=== PATIENT | female | born 1960 | race Caucasian/White ===

== ENCOUNTER 2022-08-18 14:48 | Inpatient (IN) | payer OTHER ==
[2022-08-18 15:24] LABS: Absolute Lymphocytes (CBC) 0.8 K/uL (0.7-4.9); Hematocrit 38.6 % (36.0-45.0); Lymphocytes % 14.1 % (15.3-44.8); MCV 97.9 fL (80-100); MPV 9.6 fL (7.6-11.3); RBC Red Blood Cell Count 3.95 M/uL (3.86-4.86)
[2022-08-18 15:54] LABS: Albumin 3.7 g/dL (3.4-5.0); Bilirubin Direct 0.2 mg/dL (0-0.2); Bilirubin Indirect, Calculated 0.3 mg/dL (0.2-0.8); Bilirubin Total 0.5 mg/dL (0.2-1.0); Magnesium 2.1 mg/dL (1.6-2.4); Phosphorus 2.9 mg/dL (2.5-4.9); Potassium 4.7 mEq/L (3.5-5.1); Protein, Total 7.6 g/dL (6.4-8.2)
--- NOTE | 2022-08-18 16:13 | EDPHYS ---
Physician Documentation [facility] Name: Mark Lester Age: 62 yrs Sex: Female : 1960 Arrival Date: 08/18/2022 Time: 14:48 Bed 8 Private MD: ED Physician Eduar Shelton HPI: 08/18 15:06 This 62 yrs old Female presents to ER via EMS with complaints of hyperglycemia. ms3 15:06 62-year-old female with no past medical history presents via [facility] from the [address] for hyperglycemia. Patient states earlier today she was seen at [facility] emergency room in [place]. Patient states her blood glucose level was elevated at that time and she was given 2 L normal saline and insulin. Patient was then discharged with metformin. At the [facility] EMS was then called for concern for DKA.. Historical: - Allergies: 14:58 Iodine; ap3 - Home Meds: 14:58 None [Active]; ap3 - PMHx: 14:58 None; ap3 - Immunization history:: Adult Immunizations up to date. - Social history:: Smoking status: Patient denies any tobacco usage or history of. ROS: 15:06 Constitutional: Negative for fever, and chills. Neck: Negative for injury, pain, and ms3 swelling, Cardiovascular: Negative for chest pain, and palpitations. Respiratory: Negative for shortness of breath, cough, wheezing, and pleuritic chest pain, Abdomen/GI: Negative for abdominal pain, nausea, vomiting, diarrhea, and constipation, Back: Negative for injury and pain, MS/Extremity: Negative for injury and deformity, Skin: Negative for injury, rash, and discoloration. 15:06 Endocrine: Positive for polydipsia, polyuria. 15:06 All other systems are negative. Exam: 15:06 Constitutional: This is a well developed, well nourished patient who is awake, alert, ms3 and in no acute distress. Head/Face: Normocephalic, atraumatic. Neck: Trachea midline, no cervical lymphadenopathy. Supple, full range of motion without nuchal rigidity, or vertebral point tenderness. No Meningismus. Chest/axilla: Normal chest wall appearance and motion. Nontender with no deformity. Respiratory: Lungs have equal breath sounds bilaterally, clear to auscultation and percussion. No rales, rhonchi or wheezes noted. No increased work of breathing, no retractions or nasal flaring. Abdomen/GI: Soft, non-tender, with normal bowel sounds. No distension or tympany. No guarding or rebound. No evidence of tenderness throughout. Skin: Warm, dry with normal turgor. Normal color with no rashes, no lesions, and no evidence of cellulitis. MS/ Extremity: Pulses equal, no cyanosis. Neurovascular intact. Full, normal range of motion. 15:06 Cardiovascular: Rate: bradycardic, Rhythm: regular, Pulses: no pulse deficits are appreciated, Heart sounds: normal, normal S1and S2. 15:06 ECG was reviewed by the Attending Physician. Vital Signs: 14:53 BP 117 / 80; Pulse 61; Resp 18; Temp 98.8(O); Pulse Ox 100% ; ap3 15:44 BP 103 / 75; Pulse 57; Resp 18; Pulse Ox 100% on R/A; ld1 MDM: 14:53 Patient medically screened. bs3 15:08 ED course: Labs from [place] emergency department: CBC: White blood count 7.2, hemoglobin ms3 13.2, hematocrit 37.4, platelets 334. Urinalysis: Glucose 500, bilirubin negative, ketones greater than or equal to 160 mg/dL, blood negative, pH 5.5, protein negative, nitrite negative, leukocyte esterase negative. CMP performed at 1120 sodium 135, potassium 5.7, bicarb 13, chloride 94, glucose 639, calcium 10.3, BUN 25, creatinine 0.8, alk phos 81, ALT 26, AST 18, T. bili 0.9. CT head without contrast shows no acute intracranial abnormality, chest x-ray normal.. 16:18 Differential Diagnosis DKA vs Hyperglycemia vs CIERRA. Data reviewed: vital signs, nurses ms3 notes, diagnostic data from outside facility, CBC, white blood cell count, hemoglobin, hematocrit, platelets, electrolytes, sodium, potassium, chloride, serum bicarbonate, BUN, creatinine, serum glucose, hepatic panel, and as a result, I will discharge patient. Consideration of Admission/Observation Patient was admitted/placed on observation. Management of patient was discussed with the following: Hospitalist: Dr Alarcon. I considered the following discharge prescriptions or medication management in the emergency department Medications were administered in the Emergency Department. See MAR. Historians other than the Patient: EMS: [facility]. Counseling: I had a detailed discussion with the patient and/or guardian regarding: the historical points, exam findings, and any diagnostic results supporting the discharge/admit diagnosis, lab results, the need for further work-up and treatment in the hospital. Response to treatment: There is no appreciated change of the patient's symptoms at this time, and as a result, I will admit patient. 08/18 15:04 Order name: Acetone, Serum; Complete Time: 15:56 ms3 08/18 15:04 Order name: Basic Metabolic Panel; Complete Time: 16:04 ms3 08/18 15:04 Order name: CBC with Diff; Complete Time: 15:44 ms3 08/18 15:04 Order name: Hepatic Function; Complete Time: 16:04 ms3 08/18 15:04 Order name: Lipase; Complete Time: 16:04 ms3 08/18 15:04 Order name: Magnesium; Complete Time: 16:04 ms3 08/18 15:04 Order name: Phosphorus; Complete Time: 16:04 ms3 08/18 15:05 Order name: Glucose, Ancillary Testing; Complete Time: 15:44 EDMS 08/18 17:08 Order name: Glucose, Ancillary Testing; Complete Time: 17:13 EDMS 08/18 18:37 Order name: Glucose, Ancillary Testing; Complete Time: 04: EDMS 08/18 19:36 Order name: Glucose, Ancillary Testing; Complete Time: 04: EDMS 08/18 20:42 Order name: Glucose, Ancillary Testing; Complete Time: 04: EDMS 08/18 20:58 Order name: Basic Metabolic Panel; Complete Time: 04: EDMS 08/18 21:45 Order name: Glucose, Ancillary Testing; Complete Time: 04: EDMS 08/18 22:34 Order name: Glucose, Ancillary Testing; Complete Time: 04: EDMS 08/18 23:45 Order name: Glucose, Ancillary Testing; Complete Time: 04: EDMS 08/19 00:49 Order name: Glucose, Ancillary Testing; Complete Time: 04: EDMS 08/19 01:13 Order name: Basic Metabolic Panel; Complete Time: 04: ED08/19 01:48 Order name: Glucose, Ancillary Testing; Complete Time: 04: ED08/19 03:31 Order name: Glucose, Ancillary Testing; Complete Time: 04:31 EDNH 08/19 04:50 Order name: Glucose, Ancillary Testing; Complete Time: 05:47 EDNH 08/19 05:33 Order name: Glucose, Ancillary Testing; Complete Time: 05:47 EDNH 08/19 05:49 Order name: CBC with Automated Diff EDNH 08/19 06:03 Order name: Basic Metabolic Panel [facility] 08/19 06:03 Order name: Phosphorus ED[facility] 08/19 06:03 Order name: Lipid Profile ED[facility] 08/19 06:03 Order name: Magnesium ED[facility] 08/19 06:39 Order name: Glucose, Ancillary Testing [facility] 08/19 07:34 Order name: Glucose, Ancillary Testing [facility] 08/19 08:06 Order name: Glucose, Ancillary Testing [facility] 08/19 08:19 Order name: Hemoglobin A1c [facility] 08/19 08:31 Order name: Lipase [facility] 08/19 09:23 Order name: Basic Metabolic Panel [facility] 08/19 10:05 Order name: Glucose, Ancillary Testing [facility] 08/19 11:23 Order name: Glucose, Ancillary Testing [facility] 08/19 12:13 Order name: Glucose, Ancillary Testing [facility] 08/19 13:33 Order name: Glucose, Ancillary Testing [facility] 08/19 14:10 Order name: Glucose, Ancillary Testing [facility] 08/19 14:21 Order name: Basic Metabolic Panel [facility] 08/19 15:28 Order name: Glucose, Ancillary Testing [facility] 08/19 16:29 Order name: Glucose, Ancillary Testing [facility] 08/19 17:08 Order name: Glucose, Ancillary Testing [facility] 08/19 18:39 Order name: Glucose, Ancillary Testing [facility] 08/19 14:18 Order name: CT EDNH 08/18 15:04 Order name: EKG; Complete Time: 15:05 ms3 08/19 13:38 Order name: Diet Full Liquid; Complete Time: 13:40 hb 08/18 15:04 Order name: Cardiac monitoring; Complete Time: 15:11 ms3 08/18 15:04 Order name: EKG - Nurse/Tech; Complete Time: 15:11 ms3 08/18 15:04 Order name: IV Saline Lock; Complete Time: 15:11 ms3 08/18 15:04 Order name: NPO; Complete Time: 15:11 ms3 08/18 15:04 Order name: O2 Per Protocol; Complete Time: 15:11 ms3 08/18 15:04 Order name: O2 Sat Monitoring; Complete Time: 15:11 ms3 EC:06 Rate is 52 beats/min. Rhythm is regular. QRS Monument is Normal. VA interval is normal. ms3 Clinical impression: Sinus bradycardia. Interpreted by me. Reviewed by me. Administered Medications: 16:23 Drug: Ondansetron IVP 4 mg Route: IVP; Site: right antecubital; ld1 18:07 Follow up: Response: No adverse reaction; Nausea unchanged ap3 17:35 Drug: Insulin Drip - (Insulin Regular Human IVP 100 units, NS 0.9% IV 100 ml) ld1 {Co-Signature: jl7 (Jose Chatterjee RN).} Route: IV; Rate: 7 units/hr; Site: right antecubital; 08/19 03:09 Follow up: Response: Blood sugar is lowered; IV Status: Infusion continued upon rv admission 08/18 18:06 Drug: NS 0.9% IV 1000 ml Route: IV; Rate: 1000 ml; Site: right antecubital; ap3 08/19 03:10 Follow up: IV Status: Completed infusion rv 08/18 18:06 Drug: Famotidine IVP 20 mg Route: IVP; Site: right antecubital; ap3 08/19 03:11 Follow up: Response: No adverse reaction rv 07:44 Not Given (Physician Discretion): NS 0.9% IV 1000 ml IV at 150 ml/hr continuous ld1 Disposition Summary: 08/18/22 16:12 Hospitalization Ordered Hospitalization Status: Inpatient Admission ms3 Provider: Jose Alarcon ms3 Condition: Stable ms3 Problem: new ms3 Symptoms: are unchanged ms3 Bed/Room Type: Standard ms3 Location: Intensive Care Unit(08/19/22 17:47) eb Room Assignment: 1-(08/19/22 17:47) eb Diagnosis - Diabetic Ketoacidosis without coma ms3 Forms: - Medication Reconciliation Form ms3 - SBAR form ms3 Critical care time excluding procedures: 08/18 16:18 Critical care time: Bedside Care: 35 minutes, Consultation: 5 minutes. Total time: 40 ms3 minutes Signatures: Dispatcher [employer] Abbie Andersen, RN RN aa5 Nikhil Machado, BLOW MOLD MACHINE OPERATOR-C BLOW MOLD MACHINE OPERATOR-Cla1 Zaida Dave, RN RN ap3 Kathrine Lee Marcus, DO DO ms3 Mercy Shelton, RN RN ld1 Drew Floyd MD MD bs3 Walker Mary RN rv Jose Chatterjee RN jl7 Corrections: (The following items were deleted from the chart) 16:12 16:12 Telemetry/MedSurg (Inpatient) ms3 ms3 16:12 16:12 ms3 ms3 18:35 16:12 Intensive Care Unit ms3 aa5 18:35 16:12 ms3 aa5 08/19 17:47 08/18 18:35 [facility] ER HOLD aa5 eb 08/19 17:47 [facility]18 [facility]
--- NOTE | 2022-08-18 16:13 | ER ---
Nurse's Notes [facility] Name: Mark Lester Age: 62 yrs Sex: Female : 1960 Arrival Date: 08/18/2022 Time: 14:48 Bed 8 Private MD: Diagnosis: Diabetic Ketoacidosis without coma Presentation: 08/18 14:53 Chief complaint: EMS states: was seen at [facility] earlier today for shortness of breath ap3 with dizziness. patients blood sugar was reportedly 639 where she received a dose of insulin and was informed she should follow up with the ED. patient was unable to follow up with the ED at that time, and went to the [place] where they were able to get her to agree to come to the ED for follow up care. patient reports recent completion of steroids with her last dose being today for a wasp sting. Coronavirus screen: At this time, the client does not indicate any symptoms associated with coronavirus-19. Ebola Screen: No symptoms or risks identified at this time. Initial Sepsis Screen: Does the patient meet any 2 criteria? No. Patient's initial sepsis screen is negative. Does the patient have a suspected source of infection? No. Patient's initial sepsis screen is negative. Risk Assessment: Do you want to hurt yourself or someone else? Patient reports no desire to harm self or others. Onset of symptoms was August 18, 2022. Care prior to arrival: Glucose check: 329. 14:53 Method Of Arrival: EMS: [facility] ap3 14:53 Acuity: OLIVER 3 ap3 Triage Assessment: 14:58 General: Appears in no apparent distress. Behavior is calm, cooperative. Pain: Denies ap3 pain. Neuro: Level of Consciousness is awake, alert, obeys commands, Oriented to person, place, time, situation. Neuro: Reports dizziness. Cardiovascular: Patient's skin is warm and dry. Respiratory: Reports shortness of breath Airway is patent Respiratory effort is even, unlabored, Respiratory pattern is regular, symmetrical. Historical: - Allergies: 14:58 Iodine; ap3 - Home Meds: 14:58 None [Active]; ap3 - PMHx: 14:58 None; ap3 - Immunization history:: Adult Immunizations up to date. - Social history:: Smoking status: Patient denies any tobacco usage or history of. Screenin:[facility] Fall Risk Assessment (Adult) History of falling in the last 3 months, ap3 including since admission No falls in past 3 months (0 pts). Abuse screen: Denies threats or abuse. Nutritional screening: No deficits noted. Tuberculosis screening: No symptoms or risk factors identified. Assessment: 15:45 Reassessment: See triage assessment. ld1 17:06 Reassessment: unable to locate channel for pump to start insulin drip at this time. ap3 charge nurse and provider notified. 18:28 Reassessment: patients fsbs decreased by exactly 100units. insulin rate of infusion ap3 will remain the same at this time. 08/19 19:37 Reassessment: attempted patient report, nurse to call back. pf1 Vital Signs: 08/18 14:53 BP 117 / 80; Pulse 61; Resp 18; Temp 98.8(O); Pulse Ox 100% ; ap3 15:44 BP 103 / 75; Pulse 57; Resp 18; Pulse Ox 100% on R/A; ld1 ED Course: 14:53 Patient arrived in ED. kj1 14:53 Zaida Dave, RN is Primary Nurse. ap3 14:54 Eduar Shelton DO is Attending Physician. ms3 14:58 Triage completed. ap3 14:59 Arm band placed on right wrist. ap3 14:59 Patient has correct armband on for positive identification. Bed in low position. Call ap3 light in reach. Side rails up X2. engine monitor on. Pulse ox on. NIBP on. Door closed. Noise minimized. 14:59 EKG done, by ED staff, reviewed by Eduar Shelton DO. Inserted saline lock: 20 gauge in ap3 right antecubital area, using aseptic technique. Blood collected. 15:45 No provider procedures requiring assistance completed. ld1 16:10 Jose Alarcon MD is Hospitalizing Provider. ms3 21:19 Primary Nurse role handed off by Zaida Dave, DANIA ds4 08/19 00:09 Walker Mary, DANIA is Primary Nurse. rv 03:09 Patient admitted, IV remains in place. rv 19:25 Kylie Kendall, DANIA is Primary Nurse. ha1 Administered Medications: 08/18 16:23 Drug: Ondansetron IVP 4 mg Route: IVP; Site: right antecubital; ld1 18:07 Follow up: Response: No adverse reaction; Nausea unchanged ap3 17:35 Drug: Insulin Drip - (Insulin Regular Human IVP 100 units, NS 0.9% IV 100 ml) ld1 {Co-Signature: jl7 (Jose Chatterjee RN).} Route: IV; Rate: 7 units/hr; Site: right antecubital; 08/19 03:09 Follow up: Response: Blood sugar is lowered; IV Status: Infusion continued upon rv admission 08/18 18:06 Drug: NS 0.9% IV 1000 ml Route: IV; Rate: 1000 ml; Site: right antecubital; ap3 08/19 03:10 Follow up: IV Status: Completed infusion rv 08/18 18:06 Drug: Famotidine IVP 20 mg Route: IVP; Site: right antecubital; ap3 08/19 03:11 Follow up: Response: No adverse reaction rv 07:44 Not Given (Physician Discretion): NS 0.9% IV 1000 ml IV at 150 ml/hr continuous ld1 Medication: 08/18 15:45 VIS not applicable for this client. ld1 Outcome: 16:12 Decision to Hospitalize by Provider. ms3 08/19 03:08 Admitted to ER Hold. Please see [facility] for further documentation. rv Condition: good Instructed on the need for admit. 19:48 Patient left the ED. ha1 Signatures: Dion Ruelas ds4 Zaida Dave RN RN ap3 Walker Mary RN RN rv Rahel Nichols kj1 Eduar Shelton DO DO ms3 Mercy Shelton RN RN ld1 Kylie Kendall RN RN ha1 Miguelina Wang RN RN pf1 Jose Chatterjee RN jl7 Corrections: (The following items were deleted from the chart) 08:22 08/18 17:35 Insulin Drip - (Insulin Regular Human IVP 100 units, NS 0.9% IV 100 ml) IV ld1 at calculated rate in right antecubital ap3
[2022-08-18] MEDS ORDERED: ONDANSETRON 4 MG/2 ML VIAL ONE (16:23)
[2022-08-18] MEDS ORDERED: GLUCAGON 1 MG/VIAL IM PRN (16:33)
[2022-08-18] MEDS ORDERED: D10W 250 ML BAG IV PRN (16:33)
[2022-08-18] MEDS ORDERED: INSULIN -REGULAR HUMAN 100 UNIT in NA CHLORIDE 0.9% 100 ML IV SCH (16:45)
[2022-08-18] MEDS ORDERED: NA CHLORIDE 0.9% 1,000 ML ONE (18:07)
[2022-08-18] MEDS ORDERED: FAMOTIDINE 20 MG/2 ML VIAL IV ONE (18:08)
--- NOTE | 2022-08-18 18:14 | P.HP ---
Certification for Inpatient Patient admitted to: Inpatient With expected LOS: >2 Midnights Patient will require the following post-hospital care: None Practitioner: I am a practitioner with admitting privileges, knowledge of patient current condition, hospital course, and medical plan of care. Services: Services provided to patient in accordance with Admission requirements found in Title 42 Section 412.3 of the Code of Federal Regulations Patient History Date of Service: 08/18/22 Reason for admission: DKA History of Present Illness: 62-year-old female with no known past medical history presents emergency department chief complaint of high blood sugar. She reports that she was started on prednisone 40 mg on the of this month for a wasp sting which she has been taking daily. She went to office earlier today for shortness of breath and dizziness her blood sugar was reportedly 639, the evening 2 L of IV fluids and insulin and told her she should follow-up in the emergency department. She later did present to the emergency department her labs showed she was in DKA with a blood glucose of 425 and an anion gap of 21. No infectious signs or symptoms, no fevers, white blood cell count normal. Started on insulin drip. Will need to admit to ICU. Allergies iodine Allergy (Verified 08/18/22 16:15) Itching/Hives/Rash - Past Medical/Surgical History -: none -: Rotator cuff repair Psychosocial/ Personal History: Patient lives at home with family - Family History Father -: Heart disease - Social History Smoking Status: Never smoker Alcohol use: No CD- Drugs: No Caffeine use: Yes Place of Residence: Home Review of Systems 10-point ROS is otherwise unremarkable Gastrointestinal: Nausea, Vomiting Physical Examination - Physical Exam General: Alert, In no apparent distress, Oriented x3 HEENT: Atraumatic, PERRLA, Mucous membr. moist/pink, EOMI, Sclerae nonicteric Neck: Supple, 2+ carotid pulse no bruit, No LAD, Without JVD or thyroid abnormality Respiratory: Clear to auscultation bilaterally, Normal air movement Cardiovascular: Regular rate/rhythm, Normal S1 S2 Gastrointestinal: Normal bowel sounds, Tenderness (Mild epigastric tenderness) Musculoskeletal: No tenderness Integumentary: No rashes Neurological: Normal gait, Normal speech, Normal strength at 5/5 x4 extr, Normal tone, Normal affect Lymphatics: No axilla or inguinal lymphadenopathy - Studies Laboratory Data (last 24 hrs) 08/18/22 15:12: WBC 5.90, Hgb 12.4, Hct 38.6, Plt Count 313 08/18/22 15:12: Sodium 134 L, Potassium 4.7, BUN 24 H, Creatinine 1.08 H, Glucose 415 H*, Phosphorus 2.9, Magnesium 2.1, Total Bilirubin 0.5, AST 16, ALT 29, Alkaline Phosphatase 83, Lipase 59 Assessment and Plan - Plan Assessment: Diabetic ketoacidosis-new onset diabetes mellitus type 2/steroid-induced hyperglycemia Plan: Diabetic ketoacidosis-new onset diabetes mellitus type 2/steroid-induced hyperglycemia Patient was not a known diabetic previously, started prednisone 40 mg daily on the . Currently in DKA glucose 425 anion gap 21. Continue hourly Accu- Cheks, insulin drip, IV fluids, chemistry every 4 hours. A1c in the morning. DVT PPX: Lovenox Code status: Full Discharge Plan: Home Plan to discharge in: 48 Hours - Advance Directives Does patient have a Living Will: No Does patient have a Durable POA for Healthcare: No - Code Status/Comfort Care Code Status Assessed: Yes (Full code) Critical Care: No Time Spent Managing Pts Care (In Minutes): 55
[2022-08-18] MEDS: NACHLORIDE 0.45% 1,000 ML IV SCH (19:31)
[2022-08-18] MEDS ORDERED: NACHLORIDE 0.45% 1,000 ML IV ONE (19:46)
[2022-08-18] MEDS ORDERED: D5 0.45 NS 1,000 ML IV ONE (21:42)
[2022-08-19 00:39] VITALS: BMI 23.9
[2022-08-19 01:13] LABS: Potassium 3.6 mEq/L (3.5-5.1)
[2022-08-19] MEDS: NACHLORIDE 0.45% 1,000 ML IV SCH ×3 (02:11→15:31)
[2022-08-19] MEDS ORDERED: MORPHINE 2 MG/ML SYR ONE ×3 (02:15→15:53)
[2022-08-19] MEDS ORDERED: ONDANSETRON 4 MG/2 ML VIAL ONE ×3 (02:15→15:53)
[2022-08-19] MEDS: ONDANSETRON 4 MG (ODT) TAB PO PRN ×3 (02:42→15:49)
[2022-08-19] MEDS ORDERED: SODIUM CHLORIDE 0.9% 10ML INJ IV PRN (02:43)
[2022-08-19] MEDS: MORPHINE 2 MG/ML SYR IV PRN ×3 (02:45→15:49)
--- NOTE | 2022-08-19 05:29 | P.PN ---
Date of Service: 08/19/22 During admission patient was reporting some mild burning epigastric discomfort she which she felt was related to reflux. She has been on steroids in the past few days which could have been contributing. She was given IV Pepcid at that time. A few hours ago she walked to the bathroom and had a bowel movement which she reports had some bright red blood partially occluding the stool and on the toilet paper. She also reported some lower abdominal pain. For that reason a CT abdomen pelvis was performed IV contrast was deferred given her iodine allergy. The CT scan showed "prominent thickening of the gastric mucosa which does not appear to be related to incomplete distention. Hypertrophic gastritis or gastric mass must be considered. Consider further evaluation with upper GI or direct visualization." Given patient's recent steroid use, reflux symptoms gastritis is a strong consideration, Pepcid switched to twice daily PPI. Discussed results with patient including importance of GI evaluation. She has never had a colonoscopy either recommended patient follow-up with GI for upper and lower endoscopy. Repeat H&H pending for this morning, has not had additional bloody bowel movement since then. No obvious external hemorrhoids on rectal exam. Her DKA is improving.
[2022-08-19 05:35] LABS: Absolute Lymphocytes (CBC) 2.2 K/uL (0.7-4.9); Lymphocytes % 25.3 % (15.3-44.8); MCV 95.3 fL (80-100); MPV 8.7 fL (7.6-11.3); RBC Red Blood Cell Count 3.36 M/uL (3.86-4.86)
[2022-08-19 05:56] LABS: Potassium 3.3 mEq/L (3.5-5.1)
[2022-08-19 06:03] LABS: Phosphorus 0.7 mg/dL (2.5-4.9)
[2022-08-19] MEDS: D5 0.45 NS 1,000 ML IV SCH ×2 (06:10→11:45)
[2022-08-19] MEDS ORDERED: D5 0.45 NS 1,000 ML IV ONE ×2 (06:37→13:37)
[2022-08-19] MEDS ORDERED: KCL 20 MEQ/100 mL IVPB 20 MEQ/100 ML BAG IV SCH (07:00)
[2022-08-19] MEDS ORDERED: POTASSIUM PHOS 30 MM in NA CHLORIDE 0.9% 500 ML IV ONE (07:00)
--- NOTE | 2022-08-19 07:34 | P.PN ---
Date of Service: 08/19/22 Subjective: complains of abdominal pain (pain: 4/10), burning sensation +nausea, been having stomach pain for ~1 week; reports taking baking soda + water states shes lost about 15 lbs in last 2.5 weeks with increased thirst, +more frequent urination states she had a hard time having a BM yesterday, with some blood at end of stool - around stool, small amount ROS: 10 point ROS as noted above, otherwise negative Physical Exam: GEN: Alert, oriented, NAD HEENT: Normal conjunctiva, sclera anicteric CV: Regular rate and rhythm, no edema Pulm: Nonlabored respirations on room air ABD: Soft, Mild-moderate epigastric tenderness, nondistended Neuro: Normal speech, normal affect vitals reviewed Problem List: Diabetic ketoacidosis-new onset DM2/steroid-induced hyperglycemia Blood in stool Patient was not a known diabetic previously, started prednisone 40 mg daily on the . presented in DKA gap closed overnight, kept NPO due to epigastric pain and BRBPR GI consulted no plans for inpatient evaluation at this time; outpatient f/u unless worsens PO challenge plan to switch to SQ insulin, ACHS later today once stable off drip for a few hours, ok to downgrade continue ICU For now A1c >13 will need insulin on discharge discussed with patient epigastric pain - possibly pancreatic due to DKA, vs gastritis CT Abdomen (08/19): prominent thickening of the gastric mucosa which does not appear to be related to incomplete distention Discussed with patient that she will need to f/u with GI to have an outpatient Colonoscopy and Endoscopy in the near future. continue protonix lipase normal VTE: Lovenox Code: Full Dispo: Home ~1-2 days
[2022-08-19] MEDS ORDERED: KCL 20 MEQ/100 mL IVPB 100 ML IV ONE (07:56)
[2022-08-19] MEDS ORDERED: ENOXAPARIN 40 MG/0.4 ML SQ ONE (07:56)
[2022-08-19] MEDS ORDERED: PANTOPRAZOLE 40 MG INJ ONE (07:56)
[2022-08-19] MEDS: PANTOPRAZOLE 40 MG INJ IVP SCH ×2 (08:14→21:07)
[2022-08-19] MEDS: ENOXAPARIN 40 MG/0.4 ML SQ SCH (08:14)
[2022-08-19] MEDS ORDERED: FAMOTIDINE 20 MG/2 ML VIAL IV SCH (09:00)
[2022-08-19 09:23] LABS: Potassium 3.6 mEq/L (3.5-5.1)
--- NOTE | 2022-08-19 14:17 | RAD REPORT ---
EXAM DESCRIPTION: CT - Abdomen Pelvis Wo Contrast - 08/19/2022 4:55 am CLINICAL HISTORY: Abdominal pain, bright red blood per rectum TECHNIQUE: Contiguous axial images obtained through the abdomen and pelvis without IV contrast. Sagi ttal and coronal reformatted images were provided. This exam was performed according to our departmental dose-optimization program, which includes autom ated exposure control, adjustment of the mA and/or kV according to patient size and/or use of iterati ve reconstruction technique. COMPARISON: None available for comparison. FINDINGS: Lung bases: Clear Liver: Unremarkable Gallbladder and biliary system: Unremarkable Pancreas: Unremarkable Spleen: Unremarkable Adrenals: Unremarkable Kidneys: No calculi. No hydronephrosis. Gl: There is prominent thickening of the gastric mucosa which does not appear related to incomplete d istention. Hypertrophic gastritis or gastric mass most be considered. Clinical correlation recommende d. Consider further evaluation with upper GI or direct visualization. No obstruction. No appreciable mucosal thickening. Appendix: No findings to suggest acute appendicitis. Urinary bladder: Unremarkable Reproductive: Status post hysterectomy. Lymph nodes: No pathologically enlarged lymph nodes. Peritoneum: No focal fluid collection. No free air. Vessels: No abdominal aortic aneurysm. Abdominal wall: Unremarkable Bones: Grade 1 spondylolisthesis of L5 on S1 IMPRESSION: Prominent thickening of the gastric mucosa which does not appear related to incomplete d istention. Hypertrophic gastritis or gastric mass must be considered. Consider further evaluation wit h upper GI or direct visualization. Electronically signed by: Aleksander Cruz MD 08/19/2022 4:29 AM CDT Due to temporary technical issues with the PACS/Fluency reporting system, reports are being signed by the in house radiologist without review as a courtesy to ensure prompt reporting. The interpreting r adiologist is fully responsible for the content of the report.
[2022-08-19 14:21] LABS: Potassium 3.5 mEq/L (3.5-5.1)
[2022-08-19] MEDS ORDERED: D10W 250 ML BAG IV PRN (16:34)
[2022-08-19] MEDS ORDERED: GLUCAGON 1 MG/VIAL IM PRN (16:34)
[2022-08-19] MEDS: INSULIN GLARGINE 100 UNIT/ML SQ SCH (17:00)
[2022-08-19] MEDS ORDERED: INSULIN GLARGINE 100 UNIT/ML SQ ONE (18:53)
[2022-08-19 20:26] LABS: Potassium 3.4 mEq/L (3.5-5.1)
[2022-08-19] MEDS ORDERED: MORPHINE 2 MG/ML SYR IV ONE (20:38)
[2022-08-19] MEDS ORDERED: POTASSIUM CL SA 10 MEQ TAB PO ONE (20:51)
[2022-08-19] MEDS: INSULIN -REGULAR HUMAN 50 UNIT/0.5 ML ML SQ SCH (21:08)
[2022-08-20 05:24] LABS: Albumin 2.6 g/dL (3.4-5.0); Bilirubin Total 0.5 mg/dL (0.2-1.0); Magnesium 2.1 mg/dL (1.6-2.4); Potassium 3.4 mEq/L (3.5-5.1); Protein, Total 5.5 g/dL (6.4-8.2)
--- NOTE | 2022-08-20 06:54 | P.PN ---
Date of Service: 08/20/22 Subjective: vomited after PO intake yesterday abdominal pain persists, ~about the same burning sensation in abdomen, worsened with PO intake; +no nausea today no BM, no flatus, no trouble urinating ROS: 10 point ROS as noted above, otherwise negative Physical Exam: GEN: Alert, oriented, NAD HEENT: Normal conjunctiva, sclera anicteric CV: Regular rate and rhythm, no edema Pulm: Nonlabored respirations on room air ABD: Soft, Mild-moderate epigastric tenderness, nondistended Neuro: Normal speech, normal affect vitals reviewed Problem List: Diabetic ketoacidosis-new onset DM2/steroid-induced hyperglycemia Gastritis Hematochezia Diabetic ketoacidosis-new onset DM2/steroid-induced hyperglycemia Patient was not a known diabetic previously, started prednisone 40 mg daily on the . presented in DKA gap closed overnight tolerated some PO on 08/19 and transitioned to subcutaneous insulin continue ICU For now A1c >13 discussed with patient that will need insulin on discharge Gastritis CT Abdomen (08/19): prominent thickening of the gastric mucosa which does not appear to be related to incomplete distention GI consulted no plans for inpatient evaluation at this time; outpatient f/u unless worsens patient with some small emesis last night, after PBJ sandwich continue protonix, add carafate back down to clear liquids Hematochezia x1 episode secondary to hard stool suspect internal hemorrhoid hgb stable, no further bleeding noted yet VTE: scd's given bleed Code: Full Dispo: Home ~1-2 days
[2022-08-20 07:45] LABS: Absolute Lymphocytes (CBC) 3.1 K/uL (0.7-4.9); Hematocrit 34.9 % (36.0-45.0); Lymphocytes % 53.3 % (15.3-44.8); MCV 94.9 fL (80-100); MPV 10.2 fL (7.6-11.3); RBC Red Blood Cell Count 3.68 M/uL (3.86-4.86)
[2022-08-20] MEDS ORDERED: POTASSIUM CL SA 10 MEQ TAB PO ONE (08:00)
[2022-08-20] MEDS ORDERED: POTASSIUM PHOS IN 0.9 % NACL 15 MMOL/250 ML BAG IV ONE (08:00)
[2022-08-20] MEDS: PANTOPRAZOLE 40 MG INJ IVP SCH ×2 (08:28→20:34)
[2022-08-20] MEDS: ENOXAPARIN 40 MG/0.4 ML SQ SCH (08:28)
[2022-08-20] MEDS: INSULIN -REGULAR HUMAN 50 UNIT/0.5 ML ML SQ SCH ×4 (08:29→20:34)
[2022-08-20] MEDS: ONDANSETRON 4 MG (ODT) TAB PO PRN (09:14)
[2022-08-20 09:41] VITALS: O2SAT 100
[2022-08-20] MEDS: SUCRALFATE 1 GM TABLET PO SCH ×2 (16:19→20:33)
[2022-08-20] MEDS: INSULIN GLARGINE 100 UNIT/ML SQ SCH (16:20)
[2022-08-20] MEDS: MORPHINE 2 MG/ML SYR IV PRN ×2 (16:21→22:31)
[2022-08-20 19:28] LABS: Potassium 3.6 mEq/L (3.5-5.1)
[2022-08-20 19:33] LABS: Phosphorus 1.4 mg/dL (2.5-4.9)
[2022-08-20] MEDS: POTASS/SODIUM PHOSPHATE 1 PKT POWD.PACK PO SCH ×3 (20:34→23:29)
[2022-08-21 04:09] LABS: Absolute Lymphocytes (CBC) 2.8 K/uL (0.7-4.9); Hematocrit 36.1 % (36.0-45.0); Lymphocytes % 44.8 % (15.3-44.8); MPV 9.6 fL (7.6-11.3); RBC Red Blood Cell Count 3.84 M/uL (3.86-4.86)
[2022-08-21 04:35] LABS: Albumin 2.7 g/dL (3.4-5.0); Bilirubin Total 0.3 mg/dL (0.2-1.0); Magnesium 1.8 mg/dL (1.6-2.4); Phosphorus 2.6 mg/dL (2.5-4.9); Potassium 3.4 mEq/L (3.5-5.1); Protein, Total 5.8 g/dL (6.4-8.2)
--- NOTE | 2022-08-21 07:27 | P.PN ---
Date of Service: 08/21/22 Subjective: pain not as severe in back, abdominal pain in front ~same; rates pain at 5-6/10 today vomited yesterday with diabetic diet, tolerated liquids last night feels like something is stuck in her throat at times intermittent vertigo and vision changes when she stands up; feels like its hard for her to focus with her eyes at times ROS: 10 point ROS as noted above, otherwise negative Physical Exam: GEN: Alert, oriented, NAD HEENT: Normal conjunctiva, sclera anicteric, EOMI, PERRL CV: Regular rate and rhythm, no edema Pulm: Nonlabored respirations on room air ABD: Soft, moderate-severe epigastric tenderness, nondistended Neuro: Normal speech, normal affect vitals reviewed Problem List: DKA-new onset DM2/steroid-induced hyperglycemia; insulin dependent Gastritis Hematochezia Vertigo / Intermittent vision changes DKA-new onset DM2/steroid-induced hyperglycemia; insulin dependent Patient was not a known diabetic previously, started prednisone 40 mg daily on the . presented in DKA gap closed overnight tolerated some PO on 08/19 and transitioned to subcutaneous insulin then threw up and had severe epigastric pain A1c >13 discussed with patient that will need insulin on discharge Dietitian consulted Gastritis CT Abdomen (08/19): prominent thickening of the gastric mucosa which does not appear to be related to incomplete distention GI consulted no plans for inpatient evaluation at this time; outpatient f/u unless worsens emesis and backed down to clears 08/20 continue protonix, carafate some improvement advanced to soft foods (08/21) (08/21) Pt feels like something is caught/stuck in her throat constantly suspect gastric ulcer Hematochezia x1 episode secondary to hard stool/constipation suspect internal hemorrhoid hgb stable, no further bleeding noted yet Vertigo / Intermittent vision changes suspect orthostasis pt with low/borderline BP yesterday states happened mostly when getting up CT head (08/21): ordered to rule out stroke BP better today, and pt states symptoms are better will obtain orthostatic vitals VTE: scd's given bleed Code: Full Dispo: Home ~1 days pending improvement, tolerating diet, CT head
--- NOTE | 2022-08-21 07:33 | EKG ---
Test Date: 2022-08-18 Test Time: 14:55:55 Accounting Generalist: LIEN MEASUREMENT RESULTS: Intervals: Rate: 52 MD: 180 QRSD: 90 QT: 446 QTc: 414 [place]: P: 45 MD: 180 QRS: 61 T: 44 INTERPRETIVE STATEMENTS: Sinus bradycardia Otherwise normal ECG No previous ECG available for comparison Electronically Signed On 08-21-22 07:26:07 CDT by Joe Han
[2022-08-21] MEDS ORDERED: POTASSIUM CL SA 10 MEQ TAB PO ONE (09:00)
[2022-08-21] MEDS: INSULIN -REGULAR HUMAN 50 UNIT/0.5 ML ML SQ SCH ×4 (09:06→21:05)
[2022-08-21] MEDS: PANTOPRAZOLE 40 MG INJ IVP SCH ×2 (09:09→21:04)
[2022-08-21] MEDS: SUCRALFATE 1 GM TABLET PO SCH ×4 (09:12→21:00)
--- NOTE | 2022-08-21 10:17 | RAD REPORT ---
EXAM DESCRIPTION: CT - Head Brain Wo Cont - 08/21/2022 10:08 am CLINICAL HISTORY: dizzy, vertigo, intermittent blurred vision COMPARISON: No comparisons TECHNIQUE: All CT scans are performed using dose optimization technique as appropriate and may inclu de automated exposure control or mA/KV adjustment according to patient size. FINDINGS: No intracranial hemorrhage, hydrocephalus or extra-axial fluid collection.No areas of brai n edema or evidence of midline shift. Mucous retention cyst in the left maxillary sinus. The calvarium is intact. Question pineal cyst or other benign pineal benign lesion. This is of doubtful significance. IMPRESSION: No acute intracranial abnormality.
[2022-08-21] MEDS: INSULIN GLARGINE 100 UNIT/ML SQ SCH (17:18)
[2022-08-21] MEDS: MORPHINE 2 MG/ML SYR IV PRN (21:04)
--- NOTE | 2022-08-21 22:35 | RAD REPORT ---
EXAM DESCRIPTION: US - Extremity Venous Uni Ltd - 08/21/2022 10:28 pm CLINICAL HISTORY: Swelling COMPARISON: None. TECHNIQUE: Real-time sonographic evaluation of the right upper extremity deep venous system was perf ormed. FINDINGS: Incompletely compressible right basilic vein with filling defect noted on both color Doppl er and grayscale. Normal compressibility, flow augmentation, phasic flow and spontaneous flow is identified in the hipolito ining right upper extremity veins. . No intraluminal filling defects seen. IMPRESSION: Positive for venous thrombosis of the right basilic vein. Secure chat sent to Dr. Machado by DR. Fisher at 1031 on 08/21/22
[2022-08-22 07:10] LABS: Albumin 3.1 g/dL (3.4-5.0); Bilirubin Total 0.3 mg/dL (0.2-1.0); Magnesium 2.1 mg/dL (1.6-2.4); Potassium 4.4 mEq/L (3.5-5.1); Protein, Total 6.5 g/dL (6.4-8.2)
--- NOTE | 2022-08-22 07:28 | P.PN ---
Date of Service: 08/22/22 Subjective: ROS: 10 point ROS as noted above, otherwise negative Physical Exam: GEN: Alert, oriented, NAD HEENT: Normal conjunctiva, sclera anicteric, EOMI, PERRL CV: Regular rate and rhythm, no edema Pulm: Nonlabored respirations on room air ABD: Soft, moderate-severe epigastric tenderness, nondistended Neuro: Normal speech, normal affect vitals reviewed Problem List: DKA-new onset DM2/steroid-induced hyperglycemia; insulin dependent Gastritis Hematochezia Vertigo / Intermittent vision changes DKA-new onset DM2/steroid-induced hyperglycemia; insulin dependent Patient was not a known diabetic previously, started prednisone 40 mg daily on the . presented in DKA gap closed overnight tolerated some PO on 08/19 and transitioned to subcutaneous insulin then threw up and had severe epigastric pain A1c >13 discussed with patient that will need insulin on discharge Dietitian consulted Gastritis CT Abdomen (08/19): prominent thickening of the gastric mucosa which does not appear to be related to incomplete distention GI consulted no plans for inpatient evaluation at this time; outpatient f/u unless worsens emesis and backed down to clears 08/20 continue protonix, carafate some improvement advanced to soft foods (08/21) (08/21) Pt feels like something is caught/stuck in her throat constantly suspect gastric ulcer Hematochezia x1 episode secondary to hard stool/constipation suspect internal hemorrhoid hgb stable, no further bleeding noted yet Vertigo / Intermittent vision changes suspect orthostasis pt with low/borderline BP yesterday states happened mostly when getting up CT head (08/21): ordered to rule out stroke BP better today, and pt states symptoms are better will obtain orthostatic vitals VTE: scd's given bleed Code: Full Dispo: Home ~1 days pending improvement, tolerating diet, CT head
--- NOTE | 2022-08-22 08:17 | P.DS ---
Admission Date: 08/18/22 Discharge Date: 08/22/22 Disposition: ROUTINE DISCHARGE Reason for Admission: DKA Consultations: Gastrointestinal - Dr. Alford Brief History of Present Illness: 62yo F, PMH: none Patient presents emergency department chief complaint of high blood sugar. She reports that she was started on prednisone 40 mg on the of this month for a wasp sting which she has been taking daily. She went to office earlier today for shortness of breath and dizziness her blood sugar was reportedly 639, the evening 2 L of IV fluids and insulin and told her she should follow-up in the emergency department. She later did present to the emergency department her labs showed she was in DKA with a blood glucose of 425 and an anion gap of 21. No infectious signs or symptoms, no fevers, white blood cell count normal. Started on insulin drip. Will need to admit to ICU. Hospital Course: Problem List: DKA-new onset DM2/steroid-induced hyperglycemia; insulin dependent Gastritis / gastric ulcer Hematochezia; suspected internal hemorrhoid; resolved Vertigo / Intermittent vision changes Patient presented to the ED in DKA with a blood glucose of 425 and A1C of 13.5. She improved with IV insulin drip and transitioned to subcutaneous insulin. Hospitalization was prolonged due to epigastric pain. CT abdomen noted inflammation/wall thickening of gastric wall, concerning for gastritis/ulcer/can't exclude a tumor. Patient was not a known diabetic previously, and discussed with her that she will need insulin on discharge and to follow up with her PCP for further management of new onset diabetes. Advised patient to check her blood glucose levels fasting/before each meal and before bed, and to keep a log of her blood glucose levels to monitor for adjustments needed. Discussed adjusting 2-3 units/day until glucose levels consistently in <200. It was noted that she had emesis with episodes of vomiting, nausea, and abdominal pain. CT Abdomen noted prominent thickening of the gastric mucosa. GI was consulted. Dr. Alford felt there was no immediate need for inpatient evaluation unless her symptoms worsened. She was given protonix and carafate and felt relief in her symptoms. She was able to tolerate PO intake. Patient is to follow up with GI for an outpatient Colonoscopy and Endoscopy in the next few weeks for further assessment. New Prescriptions: Insulin - 15 units every morning, adjust as needed Pantoprazole (Protonix) twice a day for a month, once a day after 1st month, then wean down to pepcid as tolerated if unable to get [facility], can replace with omeprazole (over the counter) in the meantime Carafate before meals as needed Glucometer, Blood glucose test strips, lancets Follow up: PCP 3-5 days - review glucose levels, insulin adjustment GI within ~1 month - follow up on suspected gastric ulcer, schedule EGD Physical Exam: GEN: Alert, oriented, NAD HEENT: Normal conjunctiva, sclera anicteric CV: Regular rate and rhythm, no edema Pulm: Nonlabored respirations on room air ABD: Soft, mild epigastric tenderness, nondistended Neuro: Normal speech, normal affect Vital Signs/Physical Exam: Temp Pulse Resp BP Pulse Ox 97.8 F 58 15 122/83 99 08/22/22 04:00 08/22/22 04:00 08/22/22 04:00 08/22/22 04:00 08/22/22 04:00 Laboratory Data at Discharge: WBC 6.20 thou/uL (4.3-10.9) 08/21/22 03:38 Hgb 12.2 g/dL (12.0-15.0) 08/21/22 03:38 Hct 36.1 % (36.0-45.0) 08/21/22 03:38 Plt Count 223 thou/uL (152-406) 08/21/22 03:38 Sodium 137 mEq/L (136-145) 08/22/22 06:29 Potassium 4.4 mEq/L (3.5-5.1) D 08/22/22 06:29 BUN 12 mg/dL (7-18) 08/22/22 06:29 Creatinine 0.71 mg/dL (0.55-1.02) 08/22/22 06:29 Glucose 236 mg/dL (74-106) H 08/22/22 06:29 Phosphorus 2.6 mg/dL (2.5-4.9) 08/21/22 03:38 Magnesium 2.1 mg/dL (1.6-2.4) 08/22/22 06:29 Total Bilirubin 0.3 mg/dL (0.2-1.0) 08/22/22 06:29 AST 27 U/L (15-37) 08/22/22 06:29 ALT 34 U/L (13-56) 08/22/22 06:29 Alkaline Phosphatase 70 U/L (45-117) D 08/22/22 06:29 Triglycerides 173 mg/dL (<150) H 08/19/22 05:20 Cholesterol 230 mg/dL (<200) H 08/19/22 05:20 HDL Cholesterol 71 mg/dL (40-60) H 08/19/22 05:20 Cholesterol/HDL Ratio 3.24 08/19/22 05:20 Lipase 31 U/L (13-75) 08/20/22 04:45 Home Medications: Blood Sugar Diagnostic [Blood Glucose Test Strip] 1 each ACHS 30 Days #120 strip 08/22/22 Blood-Glucose Meter [Blood Glucose Meter] 1 each DAILY 90 Days #1 ea 08/22/22 Insulin Glargine,Hum.rec.anlog [Lantus Solostar] 15 unit SQ DAILY 30 Days #4.5 ml 08/22/22 Lancets 1 each ACHS 30 Days #120 ea 08/22/22 Pantoprazole Sodium [Protonix] 40 mg PO BID 30 Days #60 tab 08/22/22 Sucralfate [Carafate*] 1 gm PO ACHS 30 Days #120 tab 08/22/22 New Medications: Blood-Glucose Meter [Blood Glucose Meter] 1 each DAILY 90 Days #1 ea Blood Sugar Diagnostic [Blood Glucose Test Strip] 1 each ACHS 30 Days #120 strip Sucralfate [Carafate*] 1 gm PO ACHS 30 Days #120 tab Lancets 1 each ACHS 30 Days #120 ea Insulin Glargine,Hum.rec.anlog [Lantus Solostar] 15 unit SQ DAILY 30 Days #4.5 ml Pantoprazole Sodium [Protonix] 40 mg PO BID 30 Days #60 tab Physician Discharge Instructions: Patient presented to the ED in DKA with a blood glucose of 425 and A1C of 13.5. She improved with IV insulin drip and transitioned to subcutaneous insulin. Hospitalization was prolonged due to epigastric pain. CT abdomen noted inflammation/wall thickening of gastric wall, concerning for gastritis/ulcer/can't exclude a tumor. Patient was not a known diabetic previously, and discussed with her that she will need insulin on discharge and to follow up with her PCP for further management of new onset diabetes. Advised patient to check her blood glucose levels fasting/before each meal and before bed, and to keep a log of her blood glucose levels to monitor for adjustments needed. Discussed adjusting 2-3 units/day until glucose levels consistently in <200. It was noted that she had emesis with episodes of vomiting, nausea, and abdominal pain. CT Abdomen noted prominent thickening of the gastric mucosa. GI was consulted. Dr. Alford felt there was no immediate need for inpatient evaluation unless her symptoms worsened. She was given protonix and carafate and felt relief in her symptoms. She was able to tolerate PO intake. Patient is to follow up with GI for an outpatient Colonoscopy and Endoscopy in the next few weeks for further assessment. New Prescriptions: Insulin - 15 units every morning, adjust as needed Pantoprazole (Protonix) twice a day for a month, once a day after 1st month, then wean down to pepcid as tolerated if unable to get [facility], can replace with omeprazole (over the counter) in the meantime Carafate before meals as needed Glucometer, Blood glucose test strips, lancets Follow up: PCP 3-5 days - review glucose levels, insulin adjustment GI within ~1 month - follow up on suspected gastric ulcer, schedule EGD Followup: Unknown,U [Primary Care Provider] - Time spent managing pt's care (in minutes): 45
[2022-08-22 08:33] VITALS: BP 118/82; TEMP 98.9
[2022-08-22] MEDS: PANTOPRAZOLE 40 MG INJ IVP SCH (09:03)
[2022-08-22] MEDS: SUCRALFATE 1 GM TABLET PO SCH (09:03)
[2022-08-22] MEDS: INSULIN -REGULAR HUMAN 50 UNIT/0.5 ML ML SQ SCH (09:04)
== END 2022-08-22 10:51 | disposition home or self-care (01) | DRG 639 ==
LOC: ER 14:48 → ERHOLD 17:56 → 3RD-ICU 08-19 19:22 → 4TH 08-20 21:10
PROVIDERS: ADMIT Hospitalist; ATTEND Hospitalist
DX: E11.10 Type 2 diabetes mellitus with ketoacidosis without coma (principal); K59.00 Constipation, unspecified; K29.70 Gastritis, unspecified, without bleeding; K25.9 Gastric ulcer, unspecified as acute or chronic, without hemorrhage or perforation; R42 Dizziness and giddiness; Z79.4 Long term (current) use of insulin; Z91.048 Other nonmedicinal substance allergy status; Z79.899 Other long term (current) drug therapy
CPT/HCPCS: 36415; 70450; 74176; 80048; 80053; 80061; 80076; 82010; 82947; 83036; 83690; 83735; 84100; 84132; 85025; 93005; 93971; 96365; 96366; 96375; 99285; C9113; J1650; J1815; J2270; J2405; J3480; J7030; J7040; J7799; Q0162